=== PATIENT | female | born 2000 | race Caucasian/White ===

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

== ENCOUNTER 2023-12-06 00:42 | Inpatient (IN) ==
[2023-12-06] MEDS ORDERED: Lidocaine 1% VIAL 10 MG/ML 30 ML VIAL INJ PRN (01:17)
[2023-12-06] MEDS: Penicillin G Potassium IV 5,000,000 UNITS in NS 0.9% 100 ml BAG 100 ML IVPB ONE (01:36)
[2023-12-06 02:08] LABS: ABS Eosinophils 0.2 10^3/uL (0.0-0.5); ABS Lymphocytes 2.8 10^3/uL (1.0-4.8); ABS Neutrophils 7.8 10^3/uL (1.5-7.6); Eosinophil % 1.4 %; Hematocrit 29.7 % (35-45); Lymphocyte % 23.6 %; Mean Corpuscular Hemoglobin 27.6 pg (27-33); Mean Corpuscular Hgb Conc 33.7 g/dL (31-36); Platelet Count 277 10^3/uL (150-450); Red Blood Count 3.62 10^6/uL (3.63-4.92); Red Cell Distribution Width 14.4 % (12-17); White Blood Count 11.8 10^3/uL (3.8-11.8)
[2023-12-06 02:18] LABS: Urine Benzodiazepine Screen None Detected (None Detect); Urine Cannabinoids Screen None Detected (None Detect); Urine Opiates Screen None Detected (None Detect)
[2023-12-06] MEDS: Penicillin G Potassium IV 3,000,000 UNITS in NS 0.9% 100 ml BAG 100 ML IVPB SCH (05:35)
[2023-12-06] MEDS: Buffered Lidocaine 1% SYRIN 1 ml INTRADERM ONE (08:43)
[2023-12-06] MEDS ORDERED: Glycerin ADULT 2.4 gm SUPP PR PRN (12:41)
[2023-12-06] MEDS ORDERED: Lactated Ringers 1000 ml BAG 1,000 ML IV SCH (13:00)
[2023-12-06] MEDS: Witch Hazel PAD JAR TOPICAL PRN (13:06)
[2023-12-06] MEDS: Dibucaine 1% OINT 28.35 GM TUBE PR PRN (13:06)
[2023-12-06] MEDS: Lactated Ringers 1000 ml BAG 1,000 ML IV SCH (13:07)
[2023-12-06] MEDS: Oxytocin in LR 20,000 MILLI.UNIT/1,000 ML BAG IV SCH (13:07)
[2023-12-06] MEDS: Oxytocin in LR 20,000 MILLI.UNIT/1,000 ML BAG IV ONE (13:07)
[2023-12-06] MEDS: Lactated Ringers 1000 ml BAG 1,000 ML IV ONE (13:07)
[2023-12-07 07:01] LABS: ABS Basophils 0.1 10^3/uL (0.0-0.1); ABS Eosinophils 0.2 10^3/uL (0.0-0.5); ABS Lymphocytes 3.2 10^3/uL (1.0-4.8); ABS Monocytes 1.1 10^3/uL (0.0-0.9); ABS Nucleated RBC 0.01 10^3/ul; Eosinophil % 1.3 %; Hematocrit 27.6 % (35-45); Hemoglobin 9.2 g/dL (11.5-14.3); Lymphocyte % 23.4 %; Mean Corpuscular Hemoglobin 27.6 pg (27-33); Mean Corpuscular Hgb Conc 33.5 g/dL (31-36); Mean Corpuscular Volume 82.5 fL (80-97); Platelet Count 242 10^3/uL (150-450); Red Blood Count 3.34 10^6/uL (3.63-4.92); Red Cell Distribution Width 14.4 % (12-17); White Blood Count 13.6 10^3/uL (3.8-11.8)
[2023-12-07 14:28] VITALS: BP 110/71
== END 2023-12-07 16:10 | disposition home or self-care (01) | DRG 560 ==
LOC: MCHOBOUT 00:42 → MCHOB 05:53
PROVIDERS: ADMIT Midwife; ATTEND Advanced Practice Midwife